=== PATIENT | female | born 1945 | race Caucasian/White ===

== ENCOUNTER 2016-04-09 07:52 | Emergency (ER) | payer MEDICARE ==
[~2016-04-09] VITALS: Ht 170.2 cm; Wt 111.0 kg
[~2016-04-09 07:52] MED LIST: ALBU6.7H INH; AZAT50 PO; DILT120C49 PO; FLOV44AE IN; FURO1TAB93 PO; GUAI1TAB3 PO; MOME17I; NEXI20CA PO; PAXI20TA PO; PERI2TAB PO; PRED20 PO; SPIR100 PO; SYNT112T PO; TRAM50 PO; XOPE0.63 IN
[2016-04-09 08:11] VITALS: BP 135/76; PULSE 82; RESP 14; TEMP 97.7; O2SAT 100
--- NOTE | 2016-04-09 08:13 | PD ---
HPI Chief Complaint: Cardiac Complaint Time Seen by Provider: 08:02 Travel History International Travel<30 days: No Contact w/Intl Traveler<30days: No Traveled to known affect area: No History of Present Illness HPI 70-year-old female with history of hypothyroidism, A. fib, on Cardizem, here for evaluation of palpitations and possible A. fib. The patient reports that she has not been in atrial fibrillation for a long time. She states that for the last month every morning upon wakening she has symptoms of palpitations and feeling as though someone has jumped out and scared her. Sometimes he symptoms wake her up from sleep. She believes she may be in A. fib. She denies having chest pain. No dyspnea. She reports that she has been under a lot of stress and believes it may be secondary to anxiety. No fevers or recent illness. The patient is from [place] and is here for 6 months. She has no local primary care physicians. She takes aspirin 325mg every other day. PFSH Past Medical History Arthritis: Yes Asthma: Yes Atrial Fibrillation: Yes Cardiovascular Problems: Yes GERD: Yes Hypertension: Yes Thyroid Disease: Yes Menopausal: Yes : 4 Para: 2 Tubal Ligation: Yes Past Surgical History Joint Replacement: Yes (BILAT.KNEE REPLACEMENT 2009) Social History Alcohol Use: No Tobacco Use: No Substance Use: No Allergies-Medications (Allergen,Severity, Reaction): Coded Allergies: Amoxicillin (Verified Allergy, Severe, Rash, 04/09/16) Ceftin (Verified Allergy, Severe, Respiratory Failure, 04/09/16) Reported Meds & Prescriptions Reported Meds & Active Scripts Active Reported Aspirin 325 Mg Tab 325 Mg PO EVERY OTHER DAY Nexium (Esomeprazole DR) 20 Mg Capdr 20 Mg PO DAILY Nasonex Nasal [place] (Mometasone Furoate) 50 Mcg/Act Naspr 2 [place] EACH NARE DAILY Flovent Hfa 10.6 GM Inh (Fluticasone Propionate) 44 Mcg/Act Inh 2 Puff INH DIRECTED PRN Use daily at the same time. Xopenex Hfa 15 GM Inh (Levalbuterol 15 GM Inh) 45 Mcg/Act Aer 2 Puff INH QID PRN Shake well before using. (1 puff = 45 mcg) Furosemide 40 Mg Tab 40 Mg PO DAILY Spironolactone 50 Mg Tab 1.5 Tab PO DAILY Azathioprine 50 Mg Tab 1.5 Tab PO DAILY Hazardous agent use appropriate precautions for handling and disposal. Aceon (Perindopril Erbumine) 8 Mg Tab 8 Mg PO DAILY Tramadol (Tramadol HCl) 50 Mg Tab 50 Mg PO Q8H PRN Diltiazem CD 24 HR 120 Mg Caper 120 Mg PO DAILY Levothyroxine (Levothyroxine Sodium) 175 Mcg Tab 175 Mcg PO DAILY Review of Systems Except as stated in HPI: all other systems reviewed are Neg Physical Exam Narrative GENERAL: Well-developed, well-nourished, comfortable, no acute distress. SKIN: Warm and dry. No rash. No pallor. HEAD: Atraumatic. Normocephalic. EYES: Pupils equal and round. No scleral icterus. No injection or drainage. ENT: No nasal bleeding or discharge. Mucous membranes pink and moist. NECK: Trachea midline. No JVD. CARDIOVASCULAR: Regular rate and rhythm. Distal pulses brisk and equal bilaterally. RESPIRATORY: No accessory muscle use. Clear to auscultation. Breath sounds equal bilaterally. GASTROINTESTINAL: Abdomen soft, non-tender, nondistended. MUSCULOSKELETAL: No obvious deformities. No clubbing. No cyanosis. No edema. NEUROLOGICAL: Awake and alert. No obvious cranial nerve deficits. Motor grossly within normal limits. Normal speech. PSYCHIATRIC: Appropriate mood and affect; insight and judgment normal. Data Data Last Documented VS Vital Signs Date Time Temp Pulse Resp B/P Pulse Ox O2 Delivery O2 Flow Rate FiO2 04/09/16 08:11 100 Room Air 04/09/16 08:11 97.7 82 14 135/76 Orders Basic Metabolic Panel (Bmp) (04/09/16 08:08) Ckmb (Isoenzyme) Profile (04/09/16 08:08) Complete Blood Count With Diff (04/09/16 08:08) Magnesium (Mg) (04/09/16 08:08) Prothrombin Time / Inr (Pt) (04/09/16 08:08) Act Partial Throm Time (Ptt) (04/09/16 08:08) Troponin I (04/09/16 08:08) Chest, Single Ap (04/09/16 08:08) Ecg Monitoring (04/09/16 08:08) Iv Access Insert/Monitor (04/09/16 08:08) Oximetry (04/09/16 08:08) Sodium Chloride 0.9% Flush (Ns Flush) (04/09/16 08:15) Thyroid Stimulating Hormone (04/09/16 08:10) Free Thyroxine (T4) (04/09/16 08:10) Electrocardiogram (04/09/16 ) Labs Laboratory Tests Test 04/09/16 08:20 White Blood Count 5.1 TH/MM3 Red Blood Count 4.08 MIL/MM3 Hemoglobin 13.1 GM/DL Hematocrit 38.5 % Mean Corpuscular Volume 94.5 FL Mean Corpuscular Hemoglobin 32.2 PG Mean Corpuscular Hemoglobin 34.1 % Concent Red Cell Distribution Width 15.5 % Platelet Count 135 TH/MM3 Mean Platelet Volume 8.6 FL Neutrophils (%) (Auto) 77.7 % Lymphocytes (%) (Auto) 12.1 % Monocytes (%) (Auto) 9.6 % Eosinophils (%) (Auto) 0.2 % Basophils (%) (Auto) 0.4 % Neutrophils # (Auto) 4.0 TH/MM3 Lymphocytes # (Auto) 0.6 TH/MM3 Monocytes # (Auto) 0.5 TH/MM3 Eosinophils # (Auto) 0.0 TH/MM3 Basophils # (Auto) 0.0 TH/MM3 CBC Comment DIFF FINAL Differential Comment Prothrombin Time 11.1 SEC Prothromb Time International 1.0 RATIO Ratio Activated Partial 25.7 SEC Thromboplast Time Sodium Level 140 MEQ/L Potassium Level 4.1 MEQ/L Chloride Level 106 MEQ/L Carbon Dioxide Level 27.2 MEQ/L Anion Gap 7 MEQ/L Blood Urea Nitrogen 15 MG/DL Creatinine 0.91 MG/DL Estimat Glomerular Filtration 61 ML/MIN Rate Random Glucose 108 MG/DL Calcium Level 8.6 MG/DL Magnesium Level 1.9 MG/DL Total Creatine Kinase 85 U/L Troponin I LESS THAN 0.02 NG/ML Thyroid Stimulating Hormone 0.175 uIU/ML 3rd Gen [facility] Medical Decision Making Medical Screen Exam Complete: Yes Emergency Medical Condition: Yes Interpretation(s) EKG: Sinus, rate 84, normal axis, normal intervals, low QRS voltages in precordial leads, no acute ischemic abnormality. Differential Diagnosis Paroxysmal A. fib, palpitations, metabolic abnormality, hyperthyroid, dysrhythmia, anxiety Narrative Course Vital signs show heart rate 82, blood pressure 135/76, pulse ox 100% on room air , oral temp 97.7F. CBC is unremarkable. BMP is unremarkable. Cardiac enzymes are negative. TSH is 0.175. Chest x-ray shows mildly underinflated examination with atelectasis at the lung bases. Otherwise no acute findings identified. Initial EKG shows sinus with a rate of 84. Repeat EKG also shows sinus rhythm with a rate of 72. Patient has been a symptomatic while in the emergency department. She states she feels a lot better after hearing all of her results are pretty normal. She could be slightly hyperthyroid. Free T4 level is still pending. She is on 175 g of Synthroid daily. I will give her prescription for 150 g daily. She states that she used to take paroxetine for anxiety, however she was weaned off this medication several months ago. She has any of this medication left over and asked if he would be okay to start this medication. I told her it might be a good idea to restart the paroxetine. Again she has never had any chest pain. At this point she is stable for discharge home with outpatient follow-up with her primary care physician when she returns to [place] in 3 weeks. She was informed on when to return to the emergency department. She verbalizes understanding and agreement with plan. Diagnosis Primary Impression: Palpitations Referrals: Primary Care Physician Additional Instructions: Follow-up with your primary care physician when you return back home. Return to the emergency department for worsening symptoms or any other concerns. Scripts Levothyroxine 150 Mcg [id number] Mcg PO DAILY #30 TAB Ref 0 Prov:Ariel Danielson MD 04/09/16 Disposition: 01 DISCHARGE HOME Condition: Stable Ariel Danielson MD Apr 09, 2016 08:13
[2016-04-09] MEDS ORDERED: SODIUM CHLORIDE 0.9% FLUSH 5 ML FLUSH IVF PRN (08:15)
[2016-04-09] MEDS ORDERED: LEVO175T2 PO (08:26)
[2016-04-09] MEDS ORDERED: DILT-60 PO (08:26)
[2016-04-09] MEDS ORDERED: SPIR50TA PO (08:26)
[2016-04-09] MEDS ORDERED: TRAM50TA PO (08:26)
[2016-04-09] MEDS ORDERED: FLUTI44I INH (08:26)
[2016-04-09] MEDS ORDERED: AZAT50 PO (08:26)
[2016-04-09] MEDS ORDERED: PERI1TAB PO (08:26)
[2016-04-09] MEDS ORDERED: MOME17I EACH NARE (08:26)
[2016-04-09] MEDS ORDERED: ASPI325T PO (08:26)
[2016-04-09] MEDS ORDERED: NEXI20CA PO (08:26)
[2016-04-09] MEDS ORDERED: FURO40TA PO (08:26)
[2016-04-09] MEDS ORDERED: XOPEAER4 INH (08:26)
--- NOTE | 2016-04-09 08:34 | RADHPO ---
EXAM DATE/TIME: 04/09/2016 08:21 [facility] COMPARISON: CHEST SINGLE AP, November 18, 2012, 12:34. INDICATIONS : Irregular heart rate, flutter feeling in chest MEDICAL HISTORY : Afib SURGICAL HISTORY : None. ENCOUNTER: Initial ACUITY: 1 month PAIN SCORE: 0/10 LOCATION: Bilateral chest FINDINGS: Portable AP view of the chest demonstrates a normal-sized cardiac silhouette. No effusion, consolidat ion, or pneumothorax is visualized. The bones and soft tissues demonstrate no acute abnormality. Lung s are underinflated with mild atelectasis at the bases. CONCLUSION: Mildly underinflated examination with atelectasis at the lung bases. Otherwise, no acute finding is i dentified. Ever Haider MD on April 09, 2016 at 8:31 Board Certified Radiologist. This report was verified electronically.
[2016-04-09 08:37] LABS: BASOPHIL % 0.4 % (0.0-2.0); EOSINOPHIL % 0.2 % (0.0-4.0); HEMATOCRIT 38.5 % (35.0-46.0); HEMO FLAGS DIFF FINAL; LYMPH % 12.1 % (9.0-44.0); LYMPHOCYTE # 0.6 TH/MM3 (1.0-4.8); MEAN CELL VOLUME 94.5 FL (80.0-100.0); MEAN CORPUSCULAR HEMOGLOBIN 32.2 PG (27.0-34.0); MEAN CORPUSCULAR HGB CONC 34.1 % (32.0-36.0); MONO % 9.6 % (0.0-8.0); NEUT % 77.7 % (16.0-70.0); PLATELET COUNT 135 TH/MM3 (150-450); RED BLOOD COUNT 4.08 MIL/MM3 (4.00-5.30); RED CELL DISTRIBUTION WIDTH 15.5 % (11.6-17.2); WHITE BLOOD COUNT 5.1 TH/MM3 (4.0-11.0)
[2016-04-09 08:39] LABS: CHLORIDE 106 MEQ/L (98-107); POTASSIUM 4.1 MEQ/L (3.5-5.1); SODIUM (NA) 140 MEQ/L (136-145)
[2016-04-09 08:42] LABS: ANION GAP 7 MEQ/L (5-15); BICARBONATE 27.2 MEQ/L (21.0-32.0); BLOOD UREA NITROGEN 15 MG/DL (7-18); MAGNESIUM 1.9 MG/DL (1.5-2.5)
[2016-04-09 08:43] LABS: APTT (PATIENT) 25.7 SEC (24.3-30.1); PROTHROMBIN TIME - PATIENT 11.1 SEC (9.8-11.6)
[2016-04-09 08:45] LABS: GLOMERULAR FILTRATION RATE 61 ML/MIN (>89)
[2016-04-09 08:54] LABS: CREATINE KINASE 85 U/L (26-192)
[2016-04-09] MEDS ORDERED: LEVO150T7 PO (10:06)
[2016-04-09 10:12] VITALS: BP 113/63; PULSE 74; RESP 17; O2SAT 99
[2016-04-09 10:21] LABS: FREE T4 1.59 NG/DL (0.76-1.46)
--- NOTE | 2016-04-10 10:17 | EKG ---
Date Performed: 04/09/2016 Time Performed: 09:47:12 PTAGE: 70 years EKG: Sinus rhythm . Poor R wave progression - probable normal variant Low QRS voltages in precordial leads Borderline E CG Compared to prior tracing no significant change PREVIOUS TRACING : 04/09/2016 07.57 DOCTOR: Kenn De Souza Interpretating Date/Time 04/10/2016 10:15:33
--- NOTE | 2016-04-10 16:56 | EKG ---
Date Performed: 04/09/2016 Time Performed: 07:57:24 PTAGE: 70 years EKG: Sinus rhythm . Poor R wave progression - probable normal variant Low QRS voltages in precordial leads Borderline E CG Compared to prior tracing no significant change PREVIOUS TRACING 11/18/2012 11.52.58 DOCTOR: Kenn De Souza Interpretating Date/Time 04/10/2016 16:55:25
== END 2016-04-09 10:24 | disposition home or self-care (01) ==
LOC: PHED 07:52
DX: R00.2 Palpitations (principal); R94.31 Abnormal electrocardiogram [ECG] [EKG]; I48.91 Unspecified atrial fibrillation; E03.9 Hypothyroidism, unspecified; J45.909 Unspecified asthma, uncomplicated; I10 Essential (primary) hypertension
CPT/HCPCS: 71010; 80048; 82550; 83735; 84439; 84443; 84484; 85025; 85610; 85730; 93005

== ENCOUNTER 2016-04-11 08:51 | Emergency (ER) | payer MEDICARE ==
[~2016-04-11] VITALS: Ht 170.2 cm; Wt 106.9 kg
[~2016-04-11 08:51] MED LIST changes: +ASPI325T PO; +DILT-60 PO; +FLUTI44I INH; +FURO40TA PO; +LEVO150T7 PO; +LEVO175T2 PO; +MOME17I EACH NARE; +PERI1TAB PO; +SPIR50TA PO; +TRAM50TA PO; +XOPEAER4 INH
[2016-04-11 08:53] VITALS: BP 140/84; PULSE 89; RESP 18; TEMP 97.8; O2SAT 96
[2016-04-11] MEDS ORDERED: SODIUM CHLORIDE 0.9% FLUSH 5 ML FLUSH IVF PRN (09:15)
[2016-04-11] MEDS ORDERED: LORazepam 2 MG/ML VIAL IV PUSH ONE (09:15)
--- NOTE | 2016-04-11 09:24 | PD ---
HPI . Palpitations Chief Complaint: Cardiac Complaint Time Seen by Provider: 09:14 Travel History International Travel<30 days: No Contact w/Intl Traveler<30days: No Traveled to known affect area: No History of Present Illness HPI Patient presents with a one-month history of feeling like her heart is pounding in her chest. She reports associated weakness and shakiness. She feels very anxious. She has a decreased ability to concentrate. Patient was seen here 2 days ago for same. She had a thorough workup at that time. Workup was negative for ACS or PE. She was found to be hyperthyroid. She has a history of hypothyroidism on Synthroid. Her dose of Synthroid was decreased 2 days ago. The plan 2 days [address] to [address] her on a Holter monitor. However, she has no local physician. Since she had no one locally to follow-up on the Holter, that plan was aborted. PFSH Past Medical History Hx Anticoagulant Therapy: Yes (ASPIRIN 325MG) Arthritis: Yes Asthma: Yes Atrial Fibrillation: Yes Cardiovascular Problems: Yes GERD: Yes Hypertension: Yes Thyroid Disease: Yes ?: Not Menopausal: Yes : 4 Para: 2 Tubal Ligation: Yes Past Surgical History Joint Replacement: Yes (BILAT.KNEE REPLACEMENT 2009) Social History Alcohol Use: No Tobacco Use: No Substance Use: No Allergies-Medications (Allergen,Severity, Reaction): Coded Allergies: Amoxicillin (Verified Allergy, Severe, Rash, 04/11/16) Ceftin (Verified Allergy, Severe, Respiratory Failure, 04/11/16) Reported Meds & Prescriptions Reported Meds & Active Scripts Active Levothyroxine (Levothyroxine Sodium) 150 Mcg Tab 150 Mcg PO DAILY Reported Aspirin 325 Mg Tab 325 Mg PO EVERY OTHER DAY Nexium (Esomeprazole DR) 20 Mg Capdr 20 Mg PO DAILY Nasonex Nasal [place] (Mometasone Furoate) 50 Mcg/Act Naspr 2 [place] EACH NARE DAILY Flovent Hfa 10.6 GM Inh (Fluticasone Propionate) 44 Mcg/Act Inh 2 Puff INH DIRECTED PRN Use daily at the same time. Xopenex Hfa 15 GM Inh (Levalbuterol 15 GM Inh) 45 Mcg/Act Aer 2 Puff INH QID PRN Shake well before using. (1 puff = 45 mcg) Furosemide 40 Mg Tab 40 Mg PO DAILY Spironolactone 50 Mg Tab 1.5 Tab PO DAILY Azathioprine 50 Mg Tab 1.5 Tab PO DAILY Hazardous agent use appropriate precautions for handling and disposal. Aceon (Perindopril Erbumine) 8 Mg Tab 8 Mg PO DAILY Tramadol (Tramadol HCl) 50 Mg Tab 50 Mg PO Q8H PRN Diltiazem CD 24 HR 120 Mg Caper 120 Mg PO DAILY Review of Systems Except as stated in HPI: all other systems reviewed are Neg Cardiovascular: Positive: Palpitations Neurologic: Positive: Weakness Psychiatric: Positive: Anxiety, Other (shakiness and decreased concentration) Physical Exam Narrative GENERAL: Healthy-appearing woman in no acute distress. SKIN: Warm and dry. HEAD: Atraumatic. Normocephalic. EYES: Pupils equal and round. ENT: No nasal bleeding or discharge. Mucous membranes pink and moist. NECK: Trachea midline. Neck is supple. CARDIOVASCULAR: Regular rate and rhythm. Heart sounds are normal. RESPIRATORY: No accessory muscle use. Lungs are clear with full air movement throughout. GASTROINTESTINAL: Abdomen soft, non-tender, nondistended. MUSCULOSKELETAL: No obvious deformities. No edema. NEUROLOGICAL: Awake and alert. No obvious cranial nerve deficits. Motor grossly within normal limits. Normal speech. PSYCHIATRIC: Appropriate mood and affect; insight and judgment normal. Data Data Last Documented VS Vital Signs Date Time Temp Pulse Resp B/P Pulse Ox O2 Delivery O2 Flow Rate FiO2 04/11/16 10:21 80 18 139/87 100 Room Air 04/11/16 08:53 97.8 Orders Ckmb (Isoenzyme) Profile (04/11/16 09:14) Complete Blood Count With Diff (04/11/16 09:14) Comprehensive Metabolic Panel (04/11/16 09:14) D-Dimer (04/11/16 09:14) Magnesium (Mg) (04/11/16 09:14) Prothrombin Time / Inr (Pt) (04/11/16 09:14) Act Partial Throm Time (Ptt) (04/11/16 09:14) Troponin I (04/11/16 09:14) Ecg Monitoring (04/11/16 09:14) Iv Access Insert/Monitor (04/11/16 09:14) Oximetry (04/11/16 09:14) Sodium Chloride 0.9% Flush (Ns Flush) (04/11/16 09:15) Lorazepam Inj (Ativan Inj) (04/11/16 09:15) Labs Laboratory Tests Test 04/11/16 09:25 White Blood Count 5.7 TH/MM3 Red Blood Count 3.99 MIL/MM3 Hemoglobin 12.7 GM/DL Hematocrit 37.2 % Mean Corpuscular Volume 93.2 FL Mean Corpuscular Hemoglobin 31.9 PG Mean Corpuscular Hemoglobin 34.2 % Concent Red Cell Distribution Width 14.3 % Platelet Count 135 TH/MM3 Mean Platelet Volume 7.9 FL Neutrophils (%) (Auto) 87.2 % Lymphocytes (%) (Auto) 6.9 % Monocytes (%) (Auto) 5.3 % Eosinophils (%) (Auto) 0.1 % Basophils (%) (Auto) 0.5 % Neutrophils # (Auto) 5.0 TH/MM3 Lymphocytes # (Auto) 0.4 TH/MM3 Monocytes # (Auto) 0.3 TH/MM3 Eosinophils # (Auto) 0.0 TH/MM3 Basophils # (Auto) 0.0 TH/MM3 CBC Comment DIFF FINAL Differential Comment Prothrombin Time 11.7 SEC Prothromb Time International 1.1 RATIO Ratio Activated Partial 25.0 SEC Thromboplast Time D-Dimer Quantitative (PE/DVT) 0.24 MG/L FEU Sodium Level 140 MEQ/L Potassium Level 4.0 MEQ/L Chloride Level 106 MEQ/L Carbon Dioxide Level 24.5 MEQ/L Anion Gap 10 MEQ/L Blood Urea Nitrogen 14 MG/DL Creatinine 0.90 MG/DL Estimat Glomerular Filtration 62 ML/MIN Rate Random Glucose 130 MG/DL Calcium Level 9.5 MG/DL Magnesium Level 1.6 MG/DL Total Bilirubin 1.1 MG/DL Aspartate Amino Transf 22 U/L (AST/SGOT) Alanine Aminotransferase 32 U/L (ALT/SGPT) Alkaline Phosphatase 64 U/L Total Creatine Kinase 56 U/L Troponin I 0.02 NG/ML Total Protein 7.3 GM/DL Albumin 4.1 GM/DL [facility] Medical Decision Making Medical Screen Exam Complete: Yes Emergency Medical Condition: Yes Medical Record Reviewed: Yes (patient was seen here 2 days ago with the same complaint. She was in a normal sinus rhythm.) Interpretation(s) EKG shows a normal sinus rhythm with a ventricular rate of 84. Today's EKG is unchanged from EKG done 2 days ago. Differential Diagnosis Differential diagnosis of palpitations includes but is not limited to anxiety, SVT, aVF with RVR, VT, sinus tachycardia Narrative Course Patient presents complaining with palpitations. She is in a normal sinus rhythm on the monitor and per EKG. She was in a normal sinus rhythm the entire time that she was here 2 days ago. I believe that her symptoms are probably secondary to anxiety. However, her labs did show hyperthyroidism 2 days ago. This is probably contributing to her symptoms. CBC & BMP Diagram 04/11/16 09:25 Cardiac enzymes are negative. D-dimer is normal. The patient has been sleeping since being given Ativan. She has remained in a sinus rhythm here. Her symptoms are most consistent with anxiety and hyperthyroidism. Diagnosis Primary Impression: Palpitations Additional Impression: Anxiety Patient Instructions: Anxiety (DC), General Instructions Med/Other Pt SpecificInfo: Prescription(s) given Scripts Lorazepam (Ativan)2 Mg Tab2 Mg PO HS PRN (ANXIETY AND/OR AGITATION) #10 TAB Ref 0 Prov:Janeen Cruz MD 04/11/16 Disposition: 01 DISCHARGE HOME Condition: Stable Janeen Cruz MD Apr 11, 2016 09:24
[2016-04-11 09:32] LABS: BASOPHIL % 0.5 % (0.0-2.0); EOSINOPHIL % 0.1 % (0.0-4.0); HEMATOCRIT 37.2 % (35.0-46.0); HEMO FLAGS DIFF FINAL; LYMPH % 6.9 % (9.0-44.0); LYMPHOCYTE # 0.4 TH/MM3 (1.0-4.8); MEAN CELL VOLUME 93.2 FL (80.0-100.0); MEAN CORPUSCULAR HEMOGLOBIN 31.9 PG (27.0-34.0); MEAN CORPUSCULAR HGB CONC 34.2 % (32.0-36.0); MONO % 5.3 % (0.0-8.0); NEUT % 87.2 % (16.0-70.0); PLATELET COUNT 135 TH/MM3 (150-450); RED BLOOD COUNT 3.99 MIL/MM3 (4.00-5.30); RED CELL DISTRIBUTION WIDTH 14.3 % (11.6-17.2); WHITE BLOOD COUNT 5.7 TH/MM3 (4.0-11.0)
[2016-04-11 09:34] VITALS: RESP 18; O2SAT 96
[2016-04-11 10:01] LABS: BLOOD UREA NITROGEN 14 MG/DL (7-18); CHLORIDE 106 MEQ/L (98-107); GLOMERULAR FILTRATION RATE 62 ML/MIN (>89); SODIUM (NA) 140 MEQ/L (136-145)
[2016-04-11 10:21] VITALS: BP 139/87; PULSE 80; RESP 18; O2SAT 100
[2016-04-11 10:21] LABS: ALKALINE PHOSPHATASE 64 U/L (45-117); MAGNESIUM 1.6 MG/DL (1.5-2.5)
[2016-04-11 10:22] LABS: ALT (GPT) 32 U/L (10-53); ANION GAP 10 MEQ/L (5-15); AST (GOT) 22 U/L (15-37); BICARBONATE 24.5 MEQ/L (21.0-32.0); CREATINE KINASE 56 U/L (26-192); TOTAL BILIRUBIN ADULT 1.1 MG/DL (0.2-1.0)
[2016-04-11 10:24] LABS: INTERNATIONAL NORMALIZED RATIO 1.1 RATIO; PROTHROMBIN TIME - PATIENT 11.7 SEC (9.8-11.6)
[2016-04-11] MEDS ORDERED: LORA-475 PO (10:31)
--- NOTE | 2016-04-12 18:52 | EKG ---
Date Performed: 04/11/2016 Time Performed: 09:00:02 PTAGE: 70 years EKG: Sinus rhythm Inferior infarct - age undetermined Lateral ST changes are nonspecific Low QRS voltages in precordia l leads Abnormal ECG PREVIOUS TRACING : 04/09/2016 09.47 DOCTOR: Brandon Brown Interpretating Date/Time 04/12/2016 18:48:11
== END 2016-04-11 10:52 | disposition home or self-care (01) ==
LOC: PHED 08:51
DX: R00.2 Palpitations (principal); E05.90 Thyrotoxicosis, unspecified without thyrotoxic crisis or storm; F41.9 Anxiety disorder, unspecified; I10 Essential (primary) hypertension; I48.91 Unspecified atrial fibrillation; Z79.82 Long term (current) use of aspirin; M19.90 Unspecified osteoarthritis, unspecified site
CPT/HCPCS: 80053; 82550; 83735; 84484; 85025; 85379; 85610; 85730; 93005; 96374; 99284; J2060

== ENCOUNTER 2017-01-10 16:58 | Emergency (ER) | payer MEDICARE ==
[~2017-01-10] VITALS: Ht 170.2 cm; Wt 113.0 kg
[~2017-01-10 16:58] MED LIST changes: -ALBU6.7H INH; +ASPI-183 PO; -ASPI325T PO; -DILT-60 PO; -DILT120C49 PO; +DILT120C50 PO; -FLOV44AE IN; -FURO1TAB93 PO; -GUAI1TAB3 PO; -LEVO175T2 PO; +LORA-475 PO; -MOME17I; -PAXI20TA PO; -PERI2TAB PO; -PRED20 PO; -SPIR100 PO; -SYNT112T PO; -TRAM50 PO; -XOPE0.63 IN
[2017-01-10 17:00] VITALS: BP 162/71; PULSE 71; RESP 16; TEMP 98; O2SAT 98
--- NOTE | 2017-01-10 17:23 | PD ---
HPI Chief Complaint: Lump, Cyst, Hernia Time Seen by Provider: 17:10 Travel History International Travel<30 days: No Contact w/Intl Traveler<30days: No Traveled to known affect area: No History of Present Illness HPI states 3 days of developing a painless lump on side of knee left....no trauma, no actual pain, lump seems to be getting smaller. pt denies associated factors such as redness to skin, no fever, no n/v/d/cp/abdpain/back pain....currently no alleviating/aggravating factors noted pt has no local doc is visiting from [facility] Past Medical History Hx Anticoagulant Therapy: Yes (BABY ASA DAILY) Arthritis: Yes Asthma: Yes Atrial Fibrillation: Yes Cardiovascular Problems: Yes (HTN) Diabetes: No GERD: Yes Hypertension: Yes Thyroid Disease: Yes ?: Not Menopausal: Yes : 4 Para: 2 Tubal Ligation: Yes Past Surgical History Joint Replacement: Yes (BILAT.KNEE REPLACEMENT 2009) Social History Alcohol Use: No Tobacco Use: No Substance Use: No Allergies-Medications (Allergen,Severity, Reaction): Coded Allergies: amoxicillin (Unverified Allergy, Severe, Rash, 01/10/17) cefuroxime (Unverified Allergy, Severe, Respiratory Failure, 01/10/17) Reported Meds & Prescriptions Reported Meds & Active Scripts Active Reported Aspirin EC (Aspirin) 81 Mg Tabdr 81 Mg PO DAILY Levothyroxine (Levothyroxine Sodium) 125 Mcg Tab 125 Mcg PO DAILY Nexium (Esomeprazole DR) 20 Mg Capdr 20 Mg PO DAILY Nasonex Nasal [place] (Mometasone Furoate) 50 Mcg/Act Naspr 2 [place] EACH NARE DAILY Flovent Hfa 10.6 GM Inh (Fluticasone Propionate) 44 Mcg/Act Inh 2 Puff INH DIRECTED PRN Use daily at the same time. Xopenex Hfa 15 GM Inh (Levalbuterol 15 GM Inh) 45 Mcg/Act Aer 2 Puff INH QID PRN Shake well before using. (1 puff = 45 mcg) Furosemide 40 Mg Tab 40 Mg PO DAILY Spironolactone 50 Mg Tab 100 Mg PO DAILY Azathioprine 50 Mg Tab 1.5 Tab PO DAILY Hazardous agent use appropriate precautions for handling and disposal. Tramadol (Tramadol HCl) 50 Mg Tab 50 Mg PO Q8H PRN Diltiazem CD 24 HR 120 Mg Caper 120 Mg PO DAILY Review of Systems Except as stated in HPI: all other systems reviewed are Neg General / Constitutional: No: Fever Eyes: No: Visual changes HENT: No: Headaches Cardiovascular: No: Chest Pain or Discomfort Respiratory: No: Shortness of Breath Gastrointestinal: No: Abdominal Pain Genitourinary: No: Dysuria Musculoskeletal: No: Pain Skin: Positive Lumps Neurologic: No: Weakness Psychiatric: No: Depression Endocrine: No: Polydipsia Hematologic/Lymphatic: No: Easy Bruising Physical Exam Narrative GENERAL: SKIN: Warm and dry, NO CELLULITIC CHANGES, NO STREAKING HEAD: Atraumatic. Normocephalic. EYES: Pupils equal and round. No scleral icterus. No injection or drainage. ENT: No nasal bleeding or discharge. Mucous membranes pink and moist. NECK: Trachea midline. No JVD. CARDIOVASCULAR: Regular rate and rhythm. RESPIRATORY: No accessory muscle use. Clear to auscultation. Breath sounds equal bilaterally. GASTROINTESTINAL: Abdomen soft, non-tender, nondistended. Hepatic and splenic margins not palpable. MUSCULOSKELETAL: Extremities without clubbing, cyanosis, or edema. No obvious deformities. over area of left lateral gastrocnemius has a 1cm firm, nonpainful , mobile, mass c/w superficial thrombosed varicose veins NEUROLOGICAL: Awake and alert. No obvious cranial nerve deficits. Motor grossly within normal limits. Five out of 5 muscle strength in the arms and legs. Normal speech. PSYCHIATRIC: Appropriate mood and affect; insight and judgment normal. Data Data Last Documented VS Vital Signs Date Time Temp Pulse Resp B/P (MAP) Pulse Ox O2 Delivery O2 Flow Rate FiO2 01/10/17 17:36 70 16 01/10/17 17:00 98.0 162/71 (101) 98 Orders Orders Us Leg Venous Doppler (01/10/17 17:15) MDM Medical Decision Making Medical Screen Exam Complete: Yes Emergency Medical Condition: Yes Medical Record Reviewed: Yes Differential Diagnosis thrombosed varicose vein v dvt v lymphangitis V POPLITEAL CYST Narrative Course ULTRS NEG FOR DVT, BUT POSITIVE FOR POPLITEAL CYST WITHOUT OTHER COMPLICATIONS Diagnosis Primary Impression: Synovial cyst of popliteal space [Saleh], left knee Patient Instructions: Bakers Cyst (ED), General Instructions Disposition: 01 DISCHARGE HOME Condition: Stable Jean Marie Carmona MD Jan 10, 2017 17:23
[2017-01-10] MEDS ORDERED: LEVO125T4 PO (17:48)
[2017-01-10] MEDS ORDERED: ASPI81TA23 PO (17:49)
--- NOTE | 2017-01-10 18:09 | RADRPT ---
EXAM DATE/TIME: 01/10/2017 17:45 [facility] COMPARISON: No previous studies available for comparison. INDICATIONS : Left leg swelling. MEDICAL HISTORY : Hypertension. Gastroesophageal reflux disease. Arthritis. Thyroid disease. Afib. Asthma. Anticoagu lant therapy, Aspirin 81mg. SURGICAL HISTORY : Tubal ligation. Bilateral knee replacement. ENCOUNTER: Initial ACUITY: 4 - 6 days PAIN SCORE: 3/10 LOCATION: Left leg. TECHNIQUE: Venous ultrasound of the leg was performed from the inguinal ligament to the proximal calf. Real-maddi e, color Doppler and spectral tracing, compression and augmentation techniques were used. FINDINGS: There is normal compressibility of the deep venous system from the inguinal region to the proximal ca lf. No echogenic clot is seen in the lumen of the common femoral, femoral, popliteal, and posterior tibial veins. There is a normal response of the venous system to proximal and distal augmentation an d respiration. There is a popliteal cyst measuring 2.0 x 2.6 x 0.7 cm. CONCLUSION: 1. No evidence of deep venous thrombosis within the left lower extremity. 2. Left popliteal cyst measuring 2.0 x 2.6 0.7 cm. Alex Barrientos MD on January 10, 2017 at 18:06 Board Certified Radiologist. This report was verified electronically.
== END 2017-01-10 18:31 | disposition home or self-care (01) ==
LOC: PHED 16:58
DX: M71.22 Synovial cyst of popliteal space [Baker], left knee (principal); J45.909 Unspecified asthma, uncomplicated; I48.91 Unspecified atrial fibrillation; I10 Essential (primary) hypertension; Z79.01 Long term (current) use of anticoagulants
CPT/HCPCS: 93971; 99284